=== PATIENT | male | born 1980 | race Two or more races ===

== ENCOUNTER 2018-07-02 22:37 | Emergency (ER) | payer MEDICAID ==
[2018-07-02 22:46] VITALS: BP 134/84; PULSE 75; RESP 16; TEMP 98; O2SAT 98
--- NOTE | 2018-07-02 23:49 | ED PDOC ---
HPI: Psych/Substance Abuse Time Seen by Provider: 07/02/18 23:30 Chief Complaint (Nursing): Psychiatric Evaluation Chief Complaint (Provider): crisis eval History Per: Patient History/Exam Limitations: no limitations Onset/Duration Of Symptoms: Days Current Symptoms Are (Timing): Still Present Additional Complaint(s): 38 y/o male brought in by EMS for evaluation. Patient states he has been "thinking" a lot lately about his past, and tonight he had a "breakdown". As per [facility], [facility] and [facility] because he was acting aggressive towards staff. Patient denies suicidal/homicidal ideations, drug/alcohol use, acute physical complaints. Past Medical History Reviewed: Historical Data, Nursing Documentation, Vital Signs Vital Signs: Last Vital Signs Temp 98 F 07/02/18 22:43 Pulse 75 07/02/18 22:43 Resp 16 07/02/18 22:43 BP 134/84 07/02/18 22:43 Pulse Ox 98 07/02/18 22:43 - Medical History PMH: Diabetes, Schizophrenia - Surgical History Surgical History: No Surg Hx - Family History Family History: States: No Known Family Hx - Living Arrangements Living Arrangements: With Family - Allergies Allergies/Adverse Reactions: Allergies Allergy/AdvReac Type Severity Reaction Status Date / Time No Known Allergies Allergy Verified 07/02/18 22:43 Review of Systems ROS Statement: Except As Marked, All Systems Reviewed And Found Negative Psych: Positive for: Other (aggressive behavior) Physical Exam - Reviewed Nursing Documentation Reviewed: Yes Vital Signs Reviewed: Yes - Physical Exam Appears: Positive for: Well, Non-toxic, No Acute Distress Head Exam: Positive for: ATRAUMATIC, NORMAL INSPECTION, NORMOCEPHALIC Skin: Positive for: Normal Color Eye Exam: Positive for: Normal appearance ENT: Positive for: Normal ENT Inspection Cardiovascular/Chest: Positive for: Regular Rate, Rhythm Respiratory: Positive for: Normal Breath Sounds Gastrointestinal/Abdominal: Positive for: Normal Exam Back: Positive for: Normal Inspection Extremity: Positive for: Normal ROM Neurologic/Psych: Positive for: Alert, Oriented (x3) - ECG O2 Sat by Pulse Oximetry: 98 - Progress ED Course And Treament: Patient evaluated by fitness worker, does not meet criteria for admission at this time as per Dr. Chan Patient requires no further intervention in the ED and is stable for discharge at this time Return precautions given Disposition - Clinical Impression Clinical Impression: Adjustment disorder - Patient ED Disposition Is Patient to be Admitted: No Counseled Patient/Family Regarding: Studies Performed, Diagnosis, Need For Followup - Disposition Disposition: Routine/Home Disposition Time: 01:33 Condition: STABLE Instructions: Adjustment Disorder
== END 2018-07-03 07:10 | disposition home or self-care (01) ==
LOC: H.ER 22:37
DX: F43.20 Adjustment disorder, unspecified (principal); E11.9 Type 2 diabetes mellitus without complications; F20.9 Schizophrenia, unspecified

== ENCOUNTER 2018-07-03 12:43 | Emergency (ER) | payer MEDICAID ==
[2018-07-03 13:09] VITALS: O2SAT 98
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
[2018-07-03 14:35] LABS: BASO % 0.2 % (0.0-2.0); EOS # 0.1 K/uL (0.0-0.7); EOS % 2.4 % (0.0-4.0); HEMOGLOBIN 14.8 g/dL (12.0-18.0); LYMPH # 2.4 K/uL (1.0-4.3); LYMPH % 42.4 % (20.0-40.0); MEAN CELL VOLUME 87.3 fl (80.0-94.0); MEAN CORPUSCULAR HEMOGLOBIN 30.1 pg (27.0-31.0); MEAN CORPUSCULAR HGB CONC 34.4 g/dL (33.0-37.0); MEAN PLATELET VOLUME 7.5 fl (7.2-11.7); MONO # 0.4 K/uL (0.0-0.8); MONO % 7.4 % (0.0-10.0); NEUT # 2.7 K/uL (1.8-7.0); NEUT % 47.6 % (50.0-75.0); RBC 4.93 Mil/uL (4.40-5.90); RED CELL DISTRIBUTION WIDTH 13.4 % (11.5-14.5); WHITE BLOOD COUNT 5.7 K/uL (4.8-10.8)
[2018-07-03 14:43] LABS: URINE BACTERIA RARE (<OCC); URINE BILIRUBIN NEGATIVE (NEGATIVE); URINE BLOOD NEGATIVE (NEGATIVE); URINE CLARITY CLEAR (Clear); URINE COLOR STRAW (YELLOW); URINE GLUCOSE (UA) NEG (Normal); URINE LEUKOCYTE ESTERASE NEG Leu/uL (Negative); URINE PROTEIN NEGATIVE (NEGATIVE); URINE UROBILINOGEN 0.2-1.0 mg/dL (0.2-1.0)
[2018-07-03 14:46] LABS: ALB/GLOB RATIO 1.3 (1.0-2.1); ALBUMIN 4.1 g/dL (3.5-5.0); ALT/SGPT 37 U/L (21-72); AST/SGOT 23 U/L (17-59); BLOOD UREA NITROGEN 7 mg/dl (9-20); GFR NON-AFRICAN AMERICAN > 60
[2018-07-03 14:58] LABS: BARBITURATES, UR NEGATIVE (NEGATIVE); BENZODIAZEPINES, UR NEGATIVE (NEGATIVE); OPIATES, UR NEGATIVE (NEGATIVE); PHENCYCLIDINE, UR NEGATIVE (NEGATIVE)
[2018-07-04 00:19] VITALS: BP 128/78; PULSE 80; RESP 18; TEMP 97.6
== END 2018-07-03 18:20 | disposition home or self-care (01) ==
LOC: H.ER 12:43
DX: F34.81 Disruptive mood dysregulation disorder (principal); F20.9 Schizophrenia, unspecified; E11.9 Type 2 diabetes mellitus without complications